=== PATIENT | female | born 2000 | race Caucasian/White ===

== ENCOUNTER 2023-04-03 10:33 | Emergency (ER) | payer OTHER ==
[~2023-04-03] VITALS: Ht 165.1 cm; Wt 113.1 kg
[2023-04-03] MEDS ORDERED: WELLBUTRIN XL150 MG PO (10:48)
[2023-04-03] MEDS ORDERED: COMBIVENT RESPIM4 GM INH (10:49)
[2023-04-03] MEDS ORDERED: OMEPRAZOLE20 MG PO (10:49)
[2023-04-03 11:28] LABS: INFLUENZA B NAA NEGATIVE (NEGATIVE); RESPIRATORY SYNCYTIAL VIR NAA NEGATIVE (NEGATIVE)
--- OUTSIDE RECORDS SUMMARY | 2023-04-03 11:36 | XMS ---
PreManage Notification: JEAN CARLOS ROQUE Security Shucker Events No recent Security Events currently on file CRITERIA MET - 6 ED Visits in 6 Months CARE PROVIDERS -, [facility]ist: Mason[employer] Installer Current Group PHONE: [phone] Care Guidelines exist for the following facilities: [facility] ( 04/23/2019 ) Oc VISIT COUNT (12 MO.) [facility] TOTAL 8 NOTE: Visits indicate total known visits. ED/UCC VISIT TRACKING (12 MO.) 04/03/2023 10:35 [facility] [place] TYPE: Emergency COMPLAINT: - EAR PAIN, FLU SYMPTOMS, DIFFICULTY BREATHING 12/17/2022 20:[facility] DIAGNOSES: - Unspecified internal derangement of left knee - fall, left knee pain - Knee Pain 10/30/2022 19:48 [facility] DIAGNOSES: - Pain in left knee - Knee Pain - left knee pain 10/09/2022 17:46 [facility] [place] TYPE: Emergency DIAGNOSES: - Unspecified abdominal pain - Flank Pain 10/04/2022 20:03 [facility] [place] TYPE: Emergency DIAGNOSES: - Tubulo-interstitial nephritis, not specified as acute or chronic - abdominal pain - UTI 10/02/2022 12:54 [facility] [place] TYPE: Emergency DIAGNOSES: - Tubulo-interstitial nephritis, not specified as acute or chronic - Abdominal pain; painful urination - Abdominal pain; urinary retention - Flank Pain 08/02/2022 20:07 [facility] [place] TYPE: Emergency DIAGNOSES: - Noninfective gastroenteritis and colitis, unspecified - Abdominal Pain - abdominal pain, vomiting - Diarrhea - Nausea - Vomiting 06/09/2022 11:05 [facility] [place] TYPE: Emergency DIAGNOSES: - Sclerosing mesenteritis - Vomiting INPATIENT VISIT TRACKING (12 MO.) No inpatient visits to display in this time frame [email or web address]
[2023-04-03] MEDS ORDERED: DOXYCYCLINE HY100 MG PO (12:03)
[2023-04-03] MEDS ORDERED: METHYLPREDNISOLO4 M1 PO (12:03)
[2023-04-03 12:13] VITALS: BP 114/81
== END 2023-04-03 12:14 | disposition home or self-care (01) ==
LOC: ED 10:33
PROVIDERS: Internal Medicine
DX: H66.93 Otitis media, unspecified, bilateral (principal); J02.9 Acute pharyngitis, unspecified; F32.A Depression, unspecified; F41.9 Anxiety disorder, unspecified; Z20.822 Contact with and (suspected) exposure to COVID-19; Z28.310 Unvaccinated for COVID-19; Z79.899 Other long term (current) drug therapy
CPT/HCPCS: 71045; 87502; A9270; C9803; U0002

== ENCOUNTER 2023-07-24 09:20 | Emergency (ER) | payer OTHER ==
[~2023-07-24] VITALS: Ht 165.1 cm; Wt 114.0 kg
[~2023-07-24 09:20] MED LIST: COMBIVENT RESPIM4 GM INH; DOXYCYCLINE HY100 MG PO; METHYLPREDNISOLO4 M1 PO; OMEPRAZOLE20 MG PO; WELLBUTRIN XL150 MG PO
[2023-07-24 10:39] LABS: BASOPHILS 0.3 % (0-2); EOSINOPHILS 0.8 % (0-6); MCH 28.9 (27-36); MCHC 33.9 g/dl (30-36); MCV 85.2 fl (81-99); MONOCYTES 4.7 % (0-12); NEUTROPHILS 75.2 % (39-80); PLATELET COUNT 283 K/uL (140-440); RBC 5.17 M/ul (4.3-5.7); RDW 13.7 (10.5-15.0)
[2023-07-24] MEDS ORDERED: ondansetron HCL 4 MG/2 ML VIAL IV PRN (10:45)
[2023-07-24] MEDS ORDERED: KETOROLAC TROMETHAMINE 15 MG/ML VIAL IV ONE (10:45)
[2023-07-24 10:48] LABS: ALBUMIN 3.7 g/dL (3.4-5.0); ALBUMIN/GLOBULIN RATIO 0.88 (1.1-2.4); ANION GAP 18.7 (7-21); BILIRUBIN, TOTAL 0.3 ng/dL (0.2-1.0); BUN/CREATININE RATIO 13.33 (6.0-28.6); CALCIUM 9.3 mg/dL (8.5-10.1); CREATININE, SERUM 0.75 mg/dL (0.55-1.02); POTASSIUM 3.7 mmol/L (3.5-5.1); PROTEIN, TOTAL 7.9 g/dL (6.4-8.2)
[2023-07-24 11:01] LABS: BILIRUBIN, URINE NEGATIVE (negative); BLOOD/HGB, URINE NEGATIVE (Negative); KETONE, URINE NEGATIVE (Negative); LEUK ESTERASE, URINE NEGATIVE (negative); NITRITE, URINE NEGATIVE (negative)
[2023-07-24] MEDS ORDERED: SODIUM CHLORIDE 0.9% 1,000 ML IV ONE (11:15)
[2023-07-24] MEDS ORDERED: HYDROmorphone HCL 1 MG/ML SYR IV PRN (11:15)
[2023-07-24] MEDS ORDERED: droPERidol 5 MG/2 ML VIAL IV ONE (12:30)
[2023-07-24] MEDS ORDERED: metroNIDAZOLE 250 MG TAB PO ONE (13:45)
[2023-07-24] MEDS ORDERED: DOXYCYCLINE HYCLATE 100 MG CAP PO ONE (13:45)
[2023-07-24] MEDS ORDERED: CEFTRIAXONE/SODIUM CHLORIDE 1 GM/100 ML PIGGYBACK IV ONE (13:45)
[2023-07-24] MEDS ORDERED: HYDROCODON-ACE1 EA10 PO (13:53)
[2023-07-24] MEDS ORDERED: METRONIDAZOLE500 MG PO (13:53)
[2023-07-24] MEDS ORDERED: DOXYCYCLINE HY100 MG PO (13:53)
[2023-07-24 14:53] LABS: N. GONORRRHOEAE BY PCR NOT DETECTED (NOT DETECT)
[2023-07-24 14:56] VITALS: BP 118/75
== END 2023-07-24 14:56 | disposition home or self-care (01) ==
LOC: ED 09:20
PROVIDERS: Emergency Medicine
DX: N73.9 Female pelvic inflammatory disease, unspecified (principal); D72.829 Elevated white blood cell count, unspecified; J45.909 Unspecified asthma, uncomplicated; K21.9 Gastro-esophageal reflux disease without esophagitis; F41.9 Anxiety disorder, unspecified; Z79.899 Other long term (current) drug therapy; Z79.51 Long term (current) use of inhaled steroids
CPT/HCPCS: 36415; 74177; 80053; 81003; 83690; 84703; 85025; 96361; 96375; 96376; 99284-25; J0696; J1170; J1790; J1885; J2405; J7030; Q9967

== ENCOUNTER 2023-11-04 07:20 | Day surgery (SDC) | payer OTHER ==
[~2023-11-04] VITALS: Ht 165.1 cm; Wt 120.0 kg
[~2023-11-04 07:20] MED LIST changes: +CEFAZOLIN SODIUM 3 GM/30 ML SYR IV SCH; +CYCLOBENZAPRINE10 MG PO; +DEXAMETHASONE SOD PHOS 4 MG/ML VIAL ONE; +DICYCLOMINE HCL20 MG PO; +HYDROCODON-ACE1 EA10 PO; +HYDROCODON-ACE1 EA11 PO; +IBLOOD GLUCOSE TEST STRIP 1 EA TEST VI PRN; +KETOROLAC TROMETHAMINE 30 MG/ML VIAL ONE; +LACTATED RINGER'S 1,000 ML IV SCH; +LIDOCAINE HCL 1% 5 ML SDV INJ ONE; +LIDOCAINE HCL 2% 5 ML SDV ONE; +METRONIDAZOLE500 MG PO; +MIDAZOLAM HCL 2 MG/2 ML VIAL ONE; +ONDANSETRON ODT8 MG PO; +PERCOCET 5-3251 EACH PO; +PROMETHAZINE HC25 M1 PO; +ondansetron HCL 4 MG/2 ML VIAL ONE; +propofoL 200 MG/20 ML VIAL ONE
[2023-11-04 07:43] VITALS: BP 128/81
[2023-11-04] MEDS ORDERED: NALOXONE HCL 0.4 MG SYR IV PRN ×2 (08:15→09:00)
[2023-11-04] MEDS ORDERED: HYDROCODONE/ACETA 5/325 TAB PO PRN (08:15)
[2023-11-04] MEDS ORDERED: ACETAMINOPHEN 1,000 MG/100 ML VIAL ONE (08:30)
--- NOTE | 2023-11-04 08:32 | NUR ---
RECEIVED VERBAL ORDER FROM Elizabeth ORTEGA CRNA TO CORTNEY BMP. UPDATED ORDERS.
[2023-11-04] MEDS ORDERED: fentaNYL citrate 100 MCG/2 ML VIAL ONE (08:41)
[2023-11-04] MEDS ORDERED: TRANEXAMIC ACID 1,000 MG/10 ML AMP ONE (08:51)
[2023-11-04] MEDS ORDERED: HYDROmorphone HCL 1 MG/ML SYR IV PRN (09:00)
[2023-11-04] MEDS ORDERED: fentaNYL citrate 50 MCG/ML SDV IV PRN (09:00)
[2023-11-04] MEDS ORDERED: ondansetron HCL 4 MG/2 ML VIAL IV PRN (09:00)
[2023-11-04] MEDS ORDERED: IBLOOD GLUCOSE TEST STRIP 1 EA TEST VI PRN (09:00)
[2023-11-04] MEDS ORDERED: droPERidol 5 MG/2 ML VIAL IV PRN (09:00)
[2023-11-04] MEDS ORDERED: DICLOFENAC SOD 75 MG TABEC PO SCH (09:00)
[2023-11-04] MEDS ORDERED: HYDROCODON-ACE1 EA10 PO (09:10)
[2023-11-04] MEDS ORDERED: DICLOFENAC SODI75 MG PO (09:10)
--- NOTE | 2023-11-04 09:38 | NUR ---
11/04/23 0938 Jessica Maza Jimy 0907- PT ARRIVES TO PACU, SEMI SANCHEZ POSITION. REACTIVE TO STIMULUS, SLURRED SPEECH, DIFFICULT TO UNDERSTAND. BREATHING EVEN AND NON LABORED. O2 AT 6L PER MASK. LR INFUSING TO LW IV. ABD SOFT, NON DISTENDED. DRESSING TO LEFT KNEE, CDI. ICE APPLIED, PULSES INTACT. ALL MONITORS IN PLACE. WILL CONTINUE TO MONITOR. 0910- PT C/O PAIN, UNABLE TO VERBALIZE HOW MUCH PAIN, DENIES NAUSEA. MEDICATED WITH FENTANYL PER SHIP RIGGER APPRENTICE. 0915- PT MOVED TO ROOM AIR, SPEECH BECOMING MORE CLEAR. ASKING FOR FIANCE, REPORTS PAIN 03/15, GRIMACING. REPORTS FENTANYL HELPED SOME BUT STILL 03/15. 0925- PT MEDICATED WITH DILAUDID PER ORDERS. 0931- DENIES NAUSEA, SAT UP IN BED, DRINKING ICE WATER, TOLERATING WELL. REPORTS PAIN IS IMPROVING AND MORE TOLERABLE. NO SIGNS OF DISTRESS. WILL CONTINUE TO MONITOR.
[2023-11-04 09:42] VITALS: BP 135/81
--- NOTE | 2023-11-04 09:45 | NUR ---
PT RETURNED TO FROM PACU AT APPROX 0945. REPORT RECEIVED FROM SECURITY CONTROL ROOM OFFICER LEAH. PT REPROTS PAIN AT 12/13. ICE IN PLACE FOR PAIN/SWELLING CONTROL. REPOSITIONING AND DISTRACTION WITH FAMILY CONVERSATION ALSO HELPFUL IN PAIN MANAGEMENT. IV SITE ASSESSED. PT IS AAOX3 AND ABLE TO MAKE HER NEEDS KNOWN. PTS SIG OTHER IN ROOM AT PTS BEDSIDE. WATER PROVIDED FOR PT WELL CRACKERS AND APPLESAUCE. BILAT RAILS IN PLACE, BED IN LOW POSITION W/WHEELS LOCKED. CALL LIGHT AND PERSONAL BELONGINGS WITHIN REACH. PT DENIES N/V. VSS.
--- NOTE | 2023-11-04 10:25 | NUR ---
CALL LIGHT ANSWERED. PT CALLED TO USE RESTROOM. IV L WRIST SL'D. PT ASSISTED TO STANDING POSITION AT SIDE OF BED. PT UTILIZED CRUTCHES TO WALK TO RESTROOM ACROSS HERNANDEZ WITH NURSE SBA. PT WAS ABLE TO VOID 200 ML OF CLR, YELLOW URINE. PT AMBULATED BACK TO ROOM WITH USE OF CRUTCHES AND NURSE SBA. PT ASSISTED WITH GETTING LLE BACK INTO BED AND ELEVATED WITH ICE PACK PLACED BACK. PT RATING PAIN 7/10 STILL. PT HAS TOLERATED ORAL FOOD/FLUIDS. PAIN MEDICATION GIVEN PER ORDERS AT APPROX 1024. PTS SIG OTHER REMAINS IN ROOM AT BEDSIDE. CALL LIGHT AND PERSOANL BELONGINGS WITHIN PT REACH.
[2023-11-04 10:45] VITALS: BP 121/78
--- NOTE | 2023-11-04 10:45 | NUR ---
INTO PTS ROOM FOR ROUTINE REASSESSMENT. PT REPORTS PAIN NOW AT 3/10 APPROX 20 MINS AFTER PAIN MEDS GIVEN PO. IV SITE ASSESSED. PT CONT TO DENY N/V WHEN ASKED. NO ACUTE CHANGES IN SURGICAL SITE/DRSG FROM PREVIOUS ASSESSMENT. PTS SIG OTHER REMAINS AT PTS BEDSIDE. CALL LIGHT WITHIN REACH. PT DENIES ANY FURTHER NEEDS/QUESTIONS.
--- NOTE | 2023-11-04 11:45 | NUR ---
INTO PTS ROOM FOR ROUTINE REASSESSMENT. NO ACUTE CHANGE IN DRSG FROM PREVIOUS ASSESSMENT. PT REPORTS PAIN WELL CONTROLLED AT /10. PT COMPLIANT WITH ICE PACK USE AND ELEVATION OF LLE. PTS SIG OTHER REMAINS IN ROOM AT BEDSIDE. IV REMOVED FROM LW. TIP OBSERVED TO BE INTACT. PRESSURE DRSG APPLIED. PT GETTING DRESSED WITH SIG OTHERS HELP. PT WITH CALL LIGHT AND PERSONAL BELONGINGS WITHIN REACH AND BOYFRIEND AT BEDSIDE TO ASSIST PT WITH CAHNGING CLOTHES.
[2023-11-04 11:59] VITALS: BP 119/76
--- NOTE | 2023-11-04 12:05 | NUR ---
[id number] PTS ROOM FOR DISCHARGE TEACHING. PT GIVEN INFO FOR F/U APPT ON 11/15/[address] LOPEZ KNEE ARTHROSCOPY AFTER CARE INSTRUCTIONS HANDOUT AND HIS OFFICE AFTER HOURS EMERGENCY PHONE NUMBER. PT INFORMED THAT HER RXS WERE FAXED TO HER PHARMACY AND SHOULD BE READY FOR P/U. PT BOYFRIEND PRESENT FOR DC TEACHING. PT AND BOYFRIEND VERBALIZED UNDERSTANDING OF DC INSTRUCTIONS GIVEN. BOTH DENIES ANY FURTHER QUESTIONS OR NEEDS. PTS BOYFRIEND LEFT TO PULL CAR AROUND FRONT. 1205-PT TRANSPORTED OFF UNIT VIA WC TO PASSENGER SIDE OF SIG OTHERS CAR. PT TOOK ALL PERSONAL BELONGINGS WITH HER.
[2023-11-04 15:15] VITALS: BP 127/89
--- NOTE | 2023-11-07 07:06 | OR ---
[facility] [address], [place] [address] Signed DATE OF OPERATION: 11/04/2023 SURGEON: Will Dodson MD PREOPERATIVE DIAGNOSIS: Loose body, left knee. POSTOPERATIVE DIAGNOSIS: Left knee cyclops lesion. PROCEDURE PERFORMED: Left knee arthroscopy with debridement of cyclops lesion. BUILDING CONSTRUCTION SUPERINTENDENT: None. ANESTHESIA: General. BLOOD LOSS: Minimal. BRIEF HISTORY: Neida is a 23-year-old female with history of an ACL reconstruction. She developed pain and locking in her knee. She had significant findings on her MRI of a possible loose body. Risks and benefits of operative treatment were discussed with her and she elected to proceed. Once consent was obtained, she was taken to the operating room. After adequate anesthesia, she was placed on the operating room table. All downside pressure points were well padded. The right leg was flexed, abducted and externally rotated on a well-padded leg mcqueen. The left was placed in a well-padded leg mcqueen and prepped and draped in a standard sterile fashion. Portal sites were injected using 0.25% Marcaine with epinephrine. 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 There was extensive intense erythema of the synovium throughout. Slight was noted superiorly. Medial and lateral gutters were clear. Medial and lateral compartment showed no chondromalacia and no meniscus tear. There was a large cyclops lesion in the front of the knee with infolded ACL graft and a little bit of suture. The exam under anesthesia prior to Electronically Signed By: WILL DODSON MD 11/07/23 0706 PATIENT NAME: NEIDA ROQUE OPERATIVE REPORT DATE OF : [birth year] REPORT #: [id number] PHYSICIAN: WILL DODSON MD PCP: JOSSY DELAROSA MD REPORT IS CONFIDENTIAL AND NOT TO BE RELEASED WITHOUT AUTHORIZATION [facility] [address] [place] [id number] Signed starting the surgery showed a grade 2 Rebecca and grade 1 pivot shift. DESCRIPTION OF OPERATION: Standard medial portal was established and the scar tissue in the front of the knee was debrided. The knee was then taken through range of motion and no snapping, locking or jumping at the patella was noted. The patient was given 2 g of TXA for the bleeding. The debris was evacuated and the scope was withdrawn. The knee was injected with 60 mg of Toradol. The portal sites were closed using 3-0 nylon and dressed with Adaptic, 4 x 8, and John wrap. She tolerated the surgery well. All sponge, needle, and instrument counts were correct. Will Dodson MD BA/OSCARL /[id number] Copies: ~ Electronically Signed By: WILL DODSON MD 11/07/23 0706 PATIENT NAME: NEIDA ROQUE OPERATIVE REPORT DATE OF : [birth year] REPORT #: [id number] PHYSICIAN: WILL DODSON MD PCP: JOSSY DELAROSA MD REPORT IS CONFIDENTIAL AND NOT TO BE RELEASED WITHOUT AUTHORIZATION
== END 2023-11-04 12:05 | disposition home or self-care (01) ==
LOC: DS 07:20
PROVIDERS: ATTEND Specialist
PROC: 0SBD4ZZ Excision of Left Knee Joint, Percutaneous Endoscopic Approach (ICD-10-PCS; principal; 2023-11-04 09:20)
DX: M25.862 Other specified joint disorders, left knee (principal); M23.42 Loose body in knee, left knee
CPT/HCPCS: 80048; 84703; J0131; J0690; J1100; J1170; J1885; J2001; J2250; J2405; J2704; J3010; J7121